=== PATIENT | male | born 1980 | race Hispanic/Latino ===

== ENCOUNTER 2018-03-13 20:27 | Emergency (ER) | payer OTHER ==
[~2018-03-13] VITALS: Ht 188 cm; Wt 150.0 kg
[~2018-03-13 20:27] MED LIST: ADVIL200 MG OR; BACTRIM DS1 TAB OR; CLONIDINE0.2 MG OR; CORTISPORIN OTI10 M1 OT; FLEXERIL OR; HYDROCHLORO25 MG/TAB PO; HYDROCHLOROT25 MG PO; LISINOPRIL5 MG PO; NORVASC10 M1 PO; PERCOCET 10/31 COMBO PO; TRAMADOL HCL50 MG OR; ULTRAM50 M1 PO; [UNRECOGNIZED DRUG - REMARK]
[2018-03-13] MEDS ORDERED: AMLODIPINE2.5 MG PO (20:38)
[2018-03-13] MEDS ORDERED: ATENOLOL25 MG PO (20:38)
[2018-03-13] MEDS ORDERED: HYDROCHLOROT50 MG PO (20:39)
[2018-03-13] MEDS ORDERED: LOSARTAN POT50 MG PO (20:39)
[2018-03-13 21:17] LABS: IMMATURE GRANULOCYTES 0.4 % (0.0-5.0); MEAN CORPUSCULAR HGB 30.1 pG CALC (26.0-32.0); MEAN CORPUSCULAR HGB CONC 33.4 g/L CALC (32.0-36.0); NEUT# 2.57 thou/uL (1.82-7.42); RED BLOOD COUNT 4.52 mill/uL (4.70-6.10); RED CELL DISTRI WIDTH 12.4 % (11.5-15.5)
[2018-03-13 21:18] LABS: HEMATOCRIT 40.7 % (39.0-50.0); HEMOGLOBIN 13.6 g/dl (14.0-18.0)
[2018-03-13 21:29] LABS: ANION GAP 14 (6-22 (CALC)); BILIRUBIN, TOTAL 0.9 mg/dL (0.0-1.4); BUN 21 mg/dL (9-20); BUN/CREATININE RATIO 20 (12-20 (CALC)); CARBON DIOXIDE 27 mmol/l (22-30); CHLORIDE 104 mmol/l (95-108); CREATININE 1.1 mg/dL (0.7-1.3); GFR > 60 ML/MIN (>=60 (CALC)); GFR FOR AFR.AMER. > 60 ML/MIN (>=60 (CALC)); SGOT/AST 57 u/l (17-59); SODIUM 140 mmol/l (137-146)
[2018-03-13 21:32] LABS: ALKALINE PHOSPHATASE 139 u/l (38-126)
[2018-03-13 21:40] LABS: MYOGLOBIN 40 ng/mL (0 - 121)
[2018-03-14 00:15] VITALS: BP 148/72
== END 2018-03-14 01:15 | disposition home or self-care (01) | DRG 552 ==
LOC: ED 20:27
PROVIDERS: Emergency Medicine
DX: M54.6 Pain in thoracic spine (principal); I10 Essential (primary) hypertension; Z95.828 Presence of other vascular implants and grafts
CPT/HCPCS: Q9967